=== PATIENT | male | born 1970 | race Caucasian/White ===

== ENCOUNTER 2019-03-05 07:37 | Emergency (ER) | payer OTHER ==
[~2019-03-05] VITALS: Ht 175.3 cm; Wt 78.5 kg
--- NOTE | 2019-03-05 08:46 | NUR ---
first contact with pt. Per pt, "My ear (right) is killing me right now. A few months back I was using a Q-tip and I felt like the ear wax clogged my ear up, and I think it is something to do with that. My head is pounding crazy right now. I took a Motrin about 45 minutes ago." pt's aox4. resps even and unlabored.
--- NOTE | 2019-03-05 09:17 | NUR ---
pt to ct at this time.
--- NOTE | 2019-03-05 09:17 | NUR ---
medication ordered from pharmacy at this time.
--- NOTE | 2019-03-05 09:24 | NUR ---
pt back to room from ct at this time.
[2019-03-05] MEDS ORDERED: LIDOCAINE GEL 2%, 5ML TP ONE (09:30)
--- NOTE | 2019-03-05 09:50 | NUR ---
pt placed simple oxy mask with 15L per edmd verbal order. pt tolerated well.
[2019-03-05 10:53] VITALS: BP 128/85
--- NOTE | 2019-03-05 12:00 | NUR ---
PT C/O KRISHNAMURTHY AGAIN. EDMD NOTIFIED.
--- NOTE | 2019-03-05 12:27 | NUR ---
Patient given discharge instructions and they have confirmed that they understand the instructions. Patient ambulatory with steady gait. PT AND EDMD DISCUSSED POC AND PT UNDERSTAND BEFORE DC. PT'S AOX4. RESPS EVEN AND UNLABORED.
[2019-03-05] MEDS ORDERED: METOCLOPRAMIDE 5 MG/ML, 2ML IVPush ONE (12:30)
[2019-03-05] MEDS ORDERED: SODIUM CHLORIDE 0.9% 1,000ML IVBOLUS ONE (12:30)
[2019-03-05] MEDS ORDERED: DIPHENHYDRAMINE 50 MG/ML, 1ML IVPush ONE (12:30)
[2019-03-05] MEDS ORDERED: SODIUM CHLORIDE FLUSH 10ML SYR IVF ONE (12:30)
[2019-03-05] MEDS ORDERED: KETOROLAC 30 MG/1 ML IVPush ONE (12:30)
== END 2019-03-05 12:29 | disposition home or self-care (01) ==
LOC: ED 12:15
DX: H65.01 Acute serous otitis media, right ear (principal); G44.009 Cluster headache syndrome, unspecified, not intractable; G44.039 Episodic paroxysmal hemicrania, not intractable
CPT/HCPCS: 70450; 99284